=== PATIENT | male | born 1940 | race African-American/Black ===

== ENCOUNTER 2017-10-17 09:42 | Day surgery (SDC) | payer MEDICARE ==
[~2017-10-17] VITALS: Ht 180.3 cm; Wt 61.4 kg
[~2017-10-17 09:42] MED LIST: DYAZ37.57 PO; INDO50CA PO
[2017-10-17 09:59] VITALS: BP 136/68; PULSE 90; RESP 20; TEMP 98.4; O2SAT 98
[2017-10-17] MEDS ORDERED: INDO75CA3 PO (10:01)
[2017-10-17] MEDS ORDERED: MULT1TAB46 (10:01)
[2017-10-17] MEDS ORDERED: CIAL10TA PO (10:01)
[2017-10-17] MEDS ORDERED: OMEP20TA93 PO (10:01)
[2017-10-17] MEDS ORDERED: COLC1CAP3 PO (10:01)
[2017-10-17] MEDS ORDERED: CLOTCRE TOPICAL (10:01)
[2017-10-17] MEDS ORDERED: TRIA37.5 (10:01)
[2017-10-17] MEDS ORDERED: SODIUM CHLOR 0.9% 1000 ML IV SCH (10:15)
[2017-10-17 10:39] LABS: AUTOMATED NEUTROPHIL # 5.4 TH/MM3 (1.8-7.7); BASOPHIL # 0.1 TH/MM3 (0-0.2); BASOPHIL % 0.8 % (0.0-2.0); EOSINOPHIL % 0.7 % (0.0-4.0); HEMATOCRIT 21.4 % (39.0-51.0); HEMOGLOBIN 7.2 GM/DL (13.0-17.0); LYMPHOCYTE # 0.7 TH/MM3 (1.0-4.8); MEAN CELL VOLUME 108.1 FL (80.0-100.0); MEAN CORPUSCULAR HEMOGLOBIN 36.4 PG (27.0-34.0); MEAN CORPUSCULAR HGB CONC 33.7 % (32.0-36.0); MEAN PLATELET VOLUME 8.5 FL (7.0-11.0); MONO % 8.3 % (0.0-8.0); MONOCYTE # 0.6 TH/MM3 (0-0.9); NEUT % 80.2 % (16.0-70.0); PLATELET COUNT 280 TH/MM3 (150-450); RED BLOOD COUNT 1.98 MIL/MM3 (4.50-5.90); RED CELL DISTRIBUTION WIDTH 16.9 % (11.6-17.2); WHITE BLOOD COUNT 6.8 TH/MM3 (4.0-11.0)
[2017-10-17 11:42] LABS: ACANTHOCYTES OCC (NORMAL); KERATOCYTES OCC (NORMAL); OVALOCYTES 2+ (NORMAL)
[2017-10-17] MEDS ORDERED: MIDAZOLAM HCL 2 MG/2 ML VIAL ONE ×2 (11:59→12:00)
[2017-10-17 12:45] VITALS: BP 104/57; PULSE 88; RESP 18; TEMP 98.4
[2017-10-17] MEDS ORDERED: LIDOCAINE HCL 1% 10 ML VIAL OTHER ONE (12:46)
[2017-10-17 13:00] VITALS: BP 91/56; PULSE 89; RESP 18; O2SAT 93
[2017-10-17 13:30] VITALS: BP 96/54; PULSE 88; RESP 18; O2SAT 92
[2017-10-17 14:00] VITALS: BP 90/49; PULSE 82; RESP 18; O2SAT 96
--- NOTE | 2017-10-17 14:29 | RADRPT ---
EXAM DATE/TIME: 10/17/2017 12:07 [place] COMPARISON: No previous studies available for comparison. INDICATIONS : Anemia. SEDATION TIME: 30 minutes BIOPSY SITE: Right MEDICATION(S): 1.) 3 mg midazolam (Versed) IV 2.) 150 mcg fentanyl (Sublimaze) IV DEVICE(S): 1.) 11 gauge Bone marrow biopsy needle MEDICAL HISTORY : Chronic obstructive pulmonary disease. Hypertension. SURGICAL HISTORY : None. ENCOUNTER: Initial ACUITY: 1 day PAIN SCORE: 0/10 LOCATION: Right iliac bone A total of one core specimen(s) were obtained and sent to the laboratory for pathologic evaluation. PROCEDURE: 1. CT guided bone marrow biopsy. 2. Conscious sedation with continuous EKG and oximetry monitoring. 3. EKG and oximetry remained stable throughout the procedure. Prior to the procedure informed consent was obtained. Any appropriate prior imaging studies were rev iewed. Using automated exposure control and adjustment of the mA and/or kV according to patient size , radiation dose was kept as low as reasonably achievable to obtain optimal diagnostic quality images . DICOM format image data is available electronically for review and comparison. The site was prepped in a sterile fashion. Full sterile technique was used, including cap, mask, starla rile gloves and gown and a large sterile sheet. Hand hygiene and 2% chlorhexidine and/or betadine/al cohol prep was utilized per protocol for cutaneous antisepsis. The skin and subcutaneous tissues wer e infiltrated with local anesthetic solution. With CT guidance the previously identified target was localized. Biopsy was performed using the presc ribed needle as above. Following biopsy marrow aspiration was performed with repeat puncture. Adequa te hemostasis was obtained with compression at the puncture site. Follow-up CT scan reveals no hemorrhage. Conscious sedation was performed with the prescribed dosages and duration as above in the presence of an independent trained radiology nurse to assist in the monitoring of the patient. EKG and oximetry remained stable throughout the procedure. The patient tolerated the procedure well and there were no complications. The patient was sent to Radiology Outpatient Unit in stable condition. CONCLUSION: 1. Uncomplicated CT guided bone marrow aspirate. 2. Uncomplicated CT guided bone marrow biopsy. Param Scott MD on October 17, 2017 at 14:26 Board Certified Radiologist. This report was verified electronically.
[2017-10-17 14:30] VITALS: BP 109/53; PULSE 83; RESP 18; O2SAT 95
== END 2017-10-17 14:57 | disposition home or self-care (01) ==
LOC: HRAD 09:42 → HRIP 09:47 → HRAD 14:57
PROVIDERS: ATTEND Internal Medicine Hematology & Oncology
DX: D53.9 Nutritional anemia, unspecified (principal); R63.4 Abnormal weight loss; D47.3 Essential (hemorrhagic) thrombocythemia; J44.9 Chronic obstructive pulmonary disease, unspecified; I10 Essential (primary) hypertension
CPT/HCPCS: 38222; 77012; 85025; 85097; 88305; 88311; 88313; 99152; 99153; C1830; J2250; J3010; J7030